=== PATIENT | male | born 1945 | race Caucasian/White ===

== ENCOUNTER 2016-12-14 03:30 | Inpatient (IN) | payer OTHER ==
[~2016-12-14] VITALS: Ht 188 cm
[2016-12-14] VITALS (12 sets, daily range): BP systolic 127–160; BP diastolic 67–93
[~2016-12-14 03:30] MED LIST: Advair 250/50 Diskus IH; Advair HFA 115/21 IH; Antivert PO; BENICAR20 MG PO; LORATAB PO; Neurontin PO; PROVENTIL,2.5 MG/0.5 IH; Proventil,Ventolin H IH; SANDIMMUNE25 MG PO; Zyloprim PO; ZyrTEC PO; [UNRECOGNIZED DRUG - OTHER] PO; predniSONE PO
[2016-12-14 04:00] LABS: BASOPHIL COUNT 0.1 K/uL (0-0.1); EOSINOPHIL (%) 3.6 % (0-5); EOSINOPHIL COUNT 0.3 K/uL (0-0.3); HEMATOCRIT 47.5 % (38.0-50.0); IMMATURE GRANULOCYTE (%) 0.9 % (0.0-0.7); IMMATURE GRANULOCYTE COUNT 0.1 K/uL; INSTRUMENT ABS NEUTROPHIL CT 4.7 K/uL; LYMPHOCYTE COUNT 1.5 K/uL (1.0-2.8); MCH 29.4 PG (29.0-34.0); MCHC 32.8 G/DL (30.0-36.0); MCV 89.5 FL (86-99); MEAN PLAT.VOLUME 10.8 uM^3 (9.0-12.4); MONOCYTE (%) 4.4 % (3-12); MONOCYTE COUNT 0.3 K/uL (0-0.8); NEUTROPHIL (%) 68.3 % (45-76); NEUTROPHIL COUNT 4.7 K/uL (1.8-6.4); PLATELET COUNT 165 K/uL (156-360); RBC DIS.WIDTH-CV 14.6 % (11.8-14.6); RBC DIS.WIDTH-SD 47.4 % (39-53); RED BLOOD COUNT 5.31 M/uL (4.00-5.50); WHITE BLOOD COUNT 6.9 K/uL (4.1-10.2)
[2016-12-14 04:11] LABS: CHLORIDE 100 mEq/L (99-109); POTASSIUM 4.6 mEq/L (3.7-5.4); SODIUM 137 mEq/L (136-147)
[2016-12-14 04:12] LABS: GLUCOSE 178 mg/dL (70-99); INTER. NORMALIZED RATIO 1.1; PROTHROMBIN TIME 10.8 (9.2-11.2); PTT 28.9 (25-32)
[2016-12-14 04:14] LABS: ANION GAP 13 MEQ/L (2-14)
[2016-12-14 04:16] LABS: GFR ESTIMATE (CALCULATED) 40 mL/min/
[2016-12-14 04:17] LABS: UREA NITROGEN (BUN) 29 mg/dL (9-23)
[2016-12-14 04:22] LABS: TROP-I INTERPRETATION POSITIVE; TROPONIN-I 0.96 ng/mL (0.0-0.30)
[2016-12-14] MEDS ORDERED: ALLOPURINOL100 MG PO ×2 (04:36→08:22)
[2016-12-14] MEDS ORDERED: GABAPENTIN300 MG PO (04:37)
[2016-12-14] MEDS ORDERED: ALL DAY ALLERGY10 M3 PO (04:38)
[2016-12-14] MEDS ORDERED: VENTOLIN HFA18 GM IH (04:39)
[2016-12-14] MEDS ORDERED: SYMBICORT60 INHALAT IH ×2 (04:40→08:21)
[2016-12-14] MEDS ORDERED: CYCLOSPORINE25 M2 PO (04:40)
[2016-12-14] MEDS ORDERED: SPIRIVA1 INHALATI IH (04:40)
[2016-12-14] MEDS ORDERED: PROVENTIL HFA6.7 GM IH ×2 (04:41→08:20)
[2016-12-14] MEDS ORDERED: CALCITRIOL0.25 MCG PO (04:44)
[2016-12-14] MEDS ORDERED: ONGLYZA2.5 MG PO ×2 (04:44→08:22)
[2016-12-14] MEDS ORDERED: GENGRAF PO (08:19)
[2016-12-14] MEDS ORDERED: TRAMADOL HCL50 MG PO (08:20)
[2016-12-14] MEDS ORDERED: IRBESARTAN150 MG PO (08:20)
[2016-12-14] MEDS ORDERED: ZYRTEC10 M3 PO (08:20)
[2016-12-14] MEDS ORDERED: SPIRIVA RESPIMAT4 GM IH (08:21)
[2016-12-14] MEDS ORDERED: NEURONTIN300 MG PO (08:21)
[2016-12-14 09:12] LABS: HDL CHOLESTEROL 35 MG/DL (Desirable>=40); NON-HDL CHOLESTEROL 223 mg/dL (Desirable<160); TOTAL CHOLESTEROL 258 mg/dL (Desirable<200); TRIGLYCERIDES 530 MG/DL (Normal: <150)
[2016-12-14 09:17] LABS: METH RESISTANT S AUREUS PCR NEGATIVE (NEGATIVE); PROBE CHECK PASS; SPECIMEN PROCESSING CONTROL PASS
[2016-12-14 09:49] LABS: POINT-OF-CARE METER ID UU13113731
[2016-12-14 12:27] LABS: TROP-I INTERPRETATION POSITIVE; TROPONIN-I 2.83 ng/mL (0.0-0.30)
[2016-12-14 13:09] LABS: POINT-OF-CARE METER ID UU13113731
[2016-12-14 18:19] LABS: POINT-OF-CARE METER ID UU13113819
[2016-12-14 21:01] LABS: TROP-I INTERPRETATION POSITIVE; TROPONIN-I 5.32 ng/mL (0.0-0.30)
[2016-12-14 21:33] LABS: POINT-OF-CARE METER ID UU14174217
[2016-12-15] VITALS (11 sets, daily range): BP systolic 120–162; BP diastolic 68–83
[2016-12-15 05:31] LABS: CHLORIDE 106 mEq/L (99-109); POTASSIUM 5.1 mEq/L (3.7-5.4); SODIUM 137 mEq/L (136-147)
[2016-12-15 05:32] LABS: INTER. NORMALIZED RATIO 1.1; PROTHROMBIN TIME 11.4 (9.2-11.2)
[2016-12-15 05:34] LABS: GLUCOSE 163 mg/dL (70-99)
[2016-12-15 05:35] LABS: ANION GAP 7 MEQ/L (2-14); PTT 69.9 (25-32)
[2016-12-15 05:36] LABS: TOTAL BILIRUBIN 0.9 mg/dL (0.0-1.0)
[2016-12-15 05:37] LABS: ALKALINE PHOSPHATASE 68 IU/L (3-129)
[2016-12-15 05:38] LABS: GFR ESTIMATE (CALCULATED) 40 mL/min/
[2016-12-15 05:39] LABS: UREA NITROGEN (BUN) 25 mg/dL (9-23)
[2016-12-15 11:31] LABS: POINT-OF-CARE METER ID UU14162636
[2016-12-15 16:10] LABS: POINT-OF-CARE METER ID UU13113731
== END 2016-12-15 20:28 | disposition short-term general hospital (02) | DRG 282 ==
LOC: EME 03:30 → 4WEST 06:30 → EDOF 06:30 → 4WEST 07:15
PROVIDERS: Emergency Medicine; Hospitalist; Internal Medicine; Student in an Organized Health Care Education/Training Program
DX: I21.4 Non-ST elevation (NSTEMI) myocardial infarction (principal); I25.10 Atherosclerotic heart disease of native coronary artery without angina pectoris; J45.909 Unspecified asthma, uncomplicated; E78.5 Hyperlipidemia, unspecified; I12.9 Hypertensive chronic kidney disease with stage 1 through stage 4 chronic kidney disease, or unspecified chronic kidney disease; E11.22 Type 2 diabetes mellitus with diabetic chronic kidney disease; N18.9 Chronic kidney disease, unspecified; Z88.8 Allergy status to other drugs, medicaments and biological substances; Z88.0 Allergy status to penicillin; Z88.6 Allergy status to analgesic agent; Z92.21 Personal history of antineoplastic chemotherapy; Z92.3 Personal history of irradiation
CPT/HCPCS: 71010; 80048; 80053; 80061; 82948; 83880; 84484; 85025; 85610; 85730; 87641; 93005; 94640; 94640 76; 94799; 99202; 99281; 99285; C1769; C1887; J1644; J1815; J2250; J3010; J3246; J7030; J7515

== ENCOUNTER 2017-01-20 10:04 | Emergency (ER) | payer OTHER ==
[~2017-01-20] VITALS: Ht 185.4 cm; Wt 105.0 kg
[~2017-01-20 10:04] MED LIST changes: +ALL DAY ALLERGY10 M3 PO; +ALLOPURINOL100 MG PO; +CALCITRIOL0.25 MCG PO; +CYCLOSPORINE25 M2 PO; +GABAPENTIN300 MG PO; +GENGRAF PO; +IRBESARTAN150 MG PO; +NEURONTIN300 MG PO; +ONGLYZA2.5 MG PO; +PROVENTIL HFA6.7 GM IH; +SPIRIVA RESPIMAT4 GM IH; +SPIRIVA1 INHALATI IH; +SYMBICORT60 INHALAT IH; +TRAMADOL HCL50 MG PO; +VENTOLIN HFA18 GM IH; +ZYRTEC10 M3 PO
[2017-01-20 11:12] VITALS: BP 145/82
== END 2017-01-20 11:13 | disposition home or self-care (01) ==
LOC: EME 10:04
DX: S40.021A Contusion of right upper arm, initial encounter (principal); V49.50XA Passenger injured in collision with unspecified motor vehicles in traffic accident, initial encounter; Y92.415 Exit ramp or entrance ramp of street or highway as the place of occurrence of the external cause; Z85.118 Personal history of other malignant neoplasm of bronchus and lung; Z85.841 Personal history of malignant neoplasm of brain; Z88.6 Allergy status to analgesic agent; Z87.891 Personal history of nicotine dependence
CPT/HCPCS: 99281; 99284